=== PATIENT | female | born 1990 | race Caucasian/White ===

== ENCOUNTER → 2020-08-25 12:25 | Observation (INO) | END | disposition home or self-care (01) | LOC: 1NENULAB | PROVIDERS: ADMIT Obstetrics & Gynecology; ATTEND Obstetrics & Gynecology ==

== ENCOUNTER 2020-08-31 03:47 | Inpatient (IN) ==
[2020-08-31] MEDS ORDERED: Famotidine 20 MG/2 ML VIAL IVP PRN (03:48)
[2020-08-31] MEDS ORDERED: Metoclopramide 10 MG/2 ML VIAL IVP PRN (03:48)
[2020-08-31] MEDS ORDERED: miSOPROStoL 25 MCG TABLET PO PRN (03:48)
[2020-08-31] MEDS ORDERED: Naloxone 0.4 MG/ML INJ IVP PRN ×2 (03:48→08:19)
[2020-08-31] MEDS ORDERED: *HR* Nalbuphine 10 MG/ML AMPUL IV PRN (03:48)
[2020-08-31] MEDS ORDERED: Penicillin G Potassium 5,000,000 UNIT in 0.9 % Sodium Chloride Mini Bag 100 ML IVPB ONE (03:54)
[2020-08-31] MEDS ORDERED: Oxytocin 20 units/ LR 1000 mL 20 UNIT/1,000 ML BAG IVC SCH (04:00)
[2020-08-31] MEDS ORDERED: Ringers Solution, Lactated 1,000 ML IVC SCH (04:00)
[2020-08-31 04:53] LABS: Basophils # 0.1 K/mcL (0.0-0.2); Basophils % 0.5 %; Eosinophils # 0.1 K/mcL (0.0-0.6); Eosinophils % 0.6 %; Hematocrit 36.6 % (35.3-44.9); Hemoglobin 12.1 g/dL (11.5-15.4); Immature Granulocytes % 1.1 % (0-4); Lymphocytes # 2.1 K/mcL (0.6-4.6); Lymphocytes % 16.7 %; Mean Corpuscular HGB Conc 33.1 g/dL (31.6-35.5); Mean Corpuscular Hemoglobin 29.2 pg (28.0-33.3); Mean Corpuscular Volume 88.4 fL (83.0-100.0); Mean Platelet Volume 12.5 fL (9.4-12.4); Monocytes % 7.7 %; Neutrophils # 9.1 K/mcL (1.6-8.9); Platelet Count 203 K/mcL (140-400); Red Blood Count 4.14 M/mcL (3.82-4.97); Red Cell Distribution Width 13.2 % (11.5-14.5); Segmented Neutrophils % 73.4 %; White Blood Count 12.4 K/mcL (4.3-11.1)
[2020-08-31 05:01] LABS: Amphetamine Screen,Urine Negative ng/mL (Cutoff=1000); Barbiturate Screen,Urine Negative ng/mL (Cutoff=200); Benzodiazepines Screen,Urine Negative ng/mL (Cutoff=200); Cannabinoid Screen,Urine Negative ng/mL (Cutoff = 50); Cocaine Screen,Urine Negative ng/mL (Cutoff= 300); Opiate Screen,Urine Negative ng/mL (Cutoff=300); Phencyclidine Screen,Urine Negative ng/mL (Cutoff=25)
[2020-08-31] MEDS ORDERED: Penicillin G Potassium 2,500,000 UNIT/105 ML MLS IVPB SCH (08:00)
[2020-08-31] MEDS ORDERED: EPHEDrine 50 MG/ML VIAL IVP PRN (08:19)
[2020-08-31] MEDS ORDERED: Ropivacaine/PF 0.2% 20 ML VIAL EP ONE (08:19)
[2020-08-31] MEDS ORDERED: Ondansetron 4 MG/2 ML VIAL IVP PRN (08:19)
[2020-08-31] MEDS ORDERED: Epidural Premix (fent/bupiv) 110 ML EP SCH (08:30)
[2020-08-31] MEDS ORDERED: *HR* Phenylephrine 10 MG/ML VIAL ONE (14:44)
[2020-08-31] MEDS ORDERED: Famotidine 20 MG TABLET PO ONE (20:45)
[2020-08-31] MEDS ORDERED: Ropivacaine/PF 0.2% 20 ML VIAL ONE (23:50)
[2020-09-01] MEDS ORDERED: Oxytocin 20 units/ LR 1000 mL 20 UNIT/1,000 ML BAG IVC SCH (04:08)
[2020-09-01] MEDS ORDERED: Lanolin 7 G OINT...G. TP PRN (04:08)
[2020-09-01] MEDS ORDERED: Measles/Mumps/Rubella Vacc 0.5 ML VIAL SQ PRN (04:08)
[2020-09-01] MEDS ORDERED: Benzocaine/Menthol 56 GM AEROSOL SPRAY TP PRN (04:08)
[2020-09-01] MEDS ORDERED: Oxytocin 20 units/ LR 1000 mL 20 UNIT/1,000 ML BAG IVC ONE (04:08)
[2020-09-01] MEDS ORDERED: Rho Immune Globulin 1,500 UNIT SYRINGE IM PRN (04:08)
[2020-09-01] MEDS: Acetaminophen 325 MG TABLET PO SCH ×4 (04:47→23:33)
[2020-09-01] MEDS: Ibuprofen 600 MG TABLET PO SCH ×4 (04:47→23:32)
[2020-09-01] MEDS: Prenatal Vit/FA 1 EACH TABLET PO SCH (07:25)
[2020-09-02 05:03] LABS: Basophils % 0.4 %; Eosinophils # 0.2 K/mcL (0.0-0.6); Eosinophils % 1.5 %; Hematocrit 31.8 % (35.3-44.9); Hemoglobin 10.6 g/dL (11.5-15.4); Immature Granulocytes % 1.2 % (0-4); Lymphocytes # 2.3 K/mcL (0.6-4.6); Lymphocytes % 20.3 %; Mean Corpuscular HGB Conc 33.3 g/dL (31.6-35.5); Mean Corpuscular Hemoglobin 30.1 pg (28.0-33.3); Mean Corpuscular Volume 90.3 fL (83.0-100.0); Mean Platelet Volume 12.6 fL (9.4-12.4); Monocytes # 0.9 K/mcL (0.0-1.3); Monocytes % 8.3 %; Neutrophils # 7.7 K/mcL (1.6-8.9); Platelet Count 196 K/mcL (140-400); Red Blood Count 3.52 M/mcL (3.82-4.97); Red Cell Distribution Width 13.2 % (11.5-14.5); Segmented Neutrophils % 68.3 %; White Blood Count 11.3 K/mcL (4.3-11.1)
[2020-09-02] MEDS: Ibuprofen 600 MG TABLET PO SCH ×2 (06:04→12:16)
[2020-09-02] MEDS: Acetaminophen 325 MG TABLET PO SCH ×2 (06:04→12:17)
[2020-09-02] MEDS: Prenatal Vit/FA 1 EACH TABLET PO SCH (07:48)
[2020-09-02 07:52] VITALS: BP 126/84
== END 2020-09-02 14:45 | disposition home or self-care (01) | DRG 807 ==
LOC: 1NENULAB 03:47 → 1NENUOBS 09-01 04:03
PROVIDERS: ADMIT Student in an Organized Health Care Education/Training Program; ATTEND Student in an Organized Health Care Education/Training Program